=== PATIENT | male | born 1930 | race Caucasian/White ===

== ENCOUNTER 2018-08-17 11:21 | Inpatient (IN) | payer OTHER, BC ==
[~2018-08-17] VITALS: Ht 170.2 cm; Wt 68.1 kg
[2018-08-17 11:35] VITALS: Ht 170.2 cm; Wt 68.1 kg
--- NOTE | 2018-08-17 11:50 | NUR ---
PT PRESENTS TO ED WITH C/O MEMORY LOSS SINCE LAST WEEK. PER NEPHEW, PATIENT IS NORMALLY ACTIVE AND STILL GAINFULLY EMPLOYED. PT'S NORMAL ROUTINE INCLUDES GETTING ON THE COMPUTER AND RESEARCHING INVESTMENTS. PER NEPHEW, OF LAST WEEK, PATIENT HAS NOT BEEN ABLE TO USE THE COMPUTER, STS THAT PATIENT'S MIND HAS BEEN "WANDERING". WHEN ASKED QUESTIONS, PATIENT HAS BEEN ABLE TO FULLY ANSWER ALL QUESTIONS WITH NO HESITATION, GCS 15 AAOX4, PERRLA, AND PATIENT ACTING APPROPRIATELY. BREATHING IS E/U BILATERAL CHEST RISE. AWAITING MSE
--- NOTE | 2018-08-17 11:57 | NUR ---
PT RESTING AT BEDSIDE IN NAD. DR. ODEN AT BEDSIDE PERFORMING MSE
--- NOTE | 2018-08-17 12:50 | NUR ---
PT RESTING AT BEDSIDE IN NAD. BREATHING E/U BILATERAL CHEST RISE. BED AT LOWEST POSITION. CALL LIGHT IN REACH. NEPHEW AT BEDSIDE
[2018-08-17 13:02] LABS: UA SPECIFIC GRAVITY 1.015 (1.005-1.035); microscopic required? YES; urine erythrocyte NEGATIVE (NEGATIVE)
[2018-08-17 13:04] LABS: PLATELET COUNT 431 x10^3mcL (130-400); RED CELL DISTRIBUTION WIDTH 17.4 % (11.5-14.5)
[2018-08-17 13:20] LABS: BAND NEUTROPHIL 1 % (0-10); BASOPHIL 0 % (0-2); MONOCYTE 8 % (0-7); SEGMENTED NEUTROPHILS 68 % (37-75)
[2018-08-17 13:21] LABS: PLATELET MORPHOLOGY PLATELETS INCREASED; rbc morphology (normal/abnorm) ABNORMAL (NORMAL)
[2018-08-17 13:31] LABS: AMPHETAMINE QUAL UR NONE DETECTED (See below)
[2018-08-17 13:49] LABS: CALCIUM 8.8 mg/dL (8.5-10.1); CARBON DIOXIDE 30.3 mmol/L (21-32); CHLORIDE SERUM 103 mmol/L (98-107); CREATININE SERUM 0.6 mg/dL (0.7-1.3); GLUCOSE SERUM 108 mg/dL (74-106); POTASSIUM SERUM 3.7 mmol/L (3.5-5.1); SODIUM SERUM 144 mmol/L (136-145)
[2018-08-17 14:00] LABS: ALBUMIN 3.6 g/dL (3.4-5.0); ALKALINE PHOSPHATASE 122 U/L (46-116); ALT/SGPT 15 U/L (16-63); AST/SGOT 13 U/L (15-37); BILIRUBIN TOTAL 1.37 mg/dL (0.20-1.00); CHOLESTEROL 147 mg/dL (<200); LIPASE 95 IU/L (73-393); MAGNESIUM 2.1 mg/dL (1.8-2.4); T4(THYROXINE) 9.4 ug/dL (4.7-13.3); TOTAL PROTEIN, SERUM 7.7 g/dL (6.4-8.2)
[2018-08-17 14:01] LABS: HDL CHOLESTEROL 80 mg/dL (40-60)
[2018-08-17] MEDS ORDERED: ADV100/50 (14:15)
[2018-08-17 15:49] VITALS: BP 136/59
--- NOTE | 2018-08-17 15:56 | NUR ---
RECEIVED PT FROM ED VIA DEMETRIUS. ORIENTED PT TO ROOM AND SURROUNDINGS. IV NOTED TO RAC PATENT AND INTACT. TELE 9 PLACED ON PT READING NSR. INSTRUCTED PT ON THE USE OF CALL LIGHT FOR ASSISTANCE. ENDORSED PT TO PRIMARY NURSE KELLY
[2018-08-17] MEDS ORDERED: METFORMIN HYDR500 M1 PO (16:11)
[2018-08-17] MEDS ORDERED: NOR10 PO (16:11)
--- NOTE | 2018-08-17 16:12 | NUR ---
SPOKE WITH PATIENTS RANI METZ. DUSTIN GAVE AN UPDATED LIST OF PT HOME MEDICATIONS. UPDATED ON EMAR.
--- NOTE | 2018-08-17 17:01 | NUR ---
PT IN BED RESTING. NO ACUTE RESP DISTRESS NOTED ON RA. PT DENIES ANY PAIN AT THIS TIME. IV PATENT AND INFUSING TO RFA. NO REDNESS OR SWELLING NOTED. BLOOD SUGAR CHECKED WAS 109. NO COVERAGE NEEDED. WILL CONTINUE TO MONITOR. CALL LIGHT IN REACH. BED IN LOWEST POSITION.
--- NOTE | 2018-08-17 18:31 | NUR ---
PT SITTING UP IN BED RESTING. RESPIRATIONS EQUAL AND UNLABORED ON RA. PT DENIES SOB. TELE#9. PT DENIES ANY PAIN AT THIS TIME. IV PATENT AND INFUSING TO RAC. NO REDNESS OR SWELLING NOTED. PT EATING DINNER AND TOLERATING WELL. WILL ENDORSE TO LAYOUT MAN RN. CALL LIGHT IN REACH. BED IN LOWEST POSITION.
--- NOTE | 2018-08-17 19:20 | NUR ---
RECEIVED PT IN BED RESTING.NO DISTRESS NOTED, DENIES ANY PAIN AT THIS TIME. IV SITE PATENT AND INTACT.BED IN LOWEST POSITION,CALL LIGHT WITHIN REACH. WILL CONTINUE TO MONITOR.
[2018-08-17 20:23] VITALS: BP 159/52
[2018-08-18] VITALS (7 sets, daily range): BP systolic 124–187; BP diastolic 60–71
--- NOTE | 2018-08-18 00:43 | NUR ---
PT C/ INSOMIA. MEDICATED AMBIEN 5MG PO ORDERED. WILL CONTINUE TO MONITOR.
--- NOTE | 2018-08-18 05:23 | NUR ---
PT REMAINED ASLEEP. NO DISTRESS NOTED. NO C/O PAIN. BED IN LOWEST POSITION,SIDERAILS UP. CALL LIGHT WITHIN REACH. WILL CONTINUE TO MONITOR.
[2018-08-18 06:38] LABS: CALCIUM 8.9 mg/dL (8.5-10.1); CARBON DIOXIDE 32.5 mmol/L (21-32); CHLORIDE SERUM 102 mmol/L (98-107); CREATININE SERUM 0.7 mg/dL (0.7-1.3); GLUCOSE SERUM 117 mg/dL (74-106); IRON 41 ug/dL (65-170); PHOSPHOROUS 3.4 mg/dL (2.5-4.9); POTASSIUM SERUM 3.6 mmol/L (3.5-5.1); SODIUM SERUM 140 mmol/L (136-145); TOTAL IRON BINDING CAPACITY 365 ug/dL (250-450)
--- NOTE | 2018-08-18 07:10 | NUR ---
RECEIVED PT FROM VIBRATION ENGINEER RN. Sunny/GISSEL4. PT HAD SOME CONFUSION THIS AM. PT IS FORGETFUL AT TIMES. RESPIRATIONS EQUAL AND UNLABORED ON RA. DENIES SOB. PT DENIES ANY PAIN AT THIS TIME. IV TO LFA PATENT AND INFUSING. NO REDNESS OR SWELLING NOTED. WILL CONTINUE TO MONITOR. CALL LIGHT IN REACH. BED IN LOWEST POSITION.
--- NOTE | 2018-08-18 07:26 | NUR ---
CARE ENDORSED TO DAY NURSE KELLY.
[2018-08-18 08:11] LABS: BASOPHIL % 0.6 % (0-2); PLATELET COUNT 373 x10^3mcL (130-400)
[2018-08-18 08:13] LABS: RED CELL DISTRIBUTION WIDTH 17.5 % (11.5-14.5)
--- NOTE | 2018-08-18 08:21 | NUR ---
PT SITTING UP AT BEDSIDE. PHYSICAL THERAPIST AT BEDSIDE. PER PT HE FEELS MORE COMFORTABLE USING WALKER. PHYSICAL THERAPIST RECOMMENDS PT CONTINUE PHYSICAL THERAPY. PT EATING DINNER. NO ACUTE RESP DISTRESS NOTED ON RA. PT BP WAS 187/64. GIVEN PO MEDS. TOLERATED WELL. WILL CONTINUE TO MONITOR. CALL LIGHT IN REACH. BED IN LOWEST POSITION.
--- NOTE | 2018-08-18 09:45 | NUR ---
DR. BROOKE AND DR. STEWART AT BEDSIDE. INFORMED OF PT BLOOD PRESSURE. PER DR. BROOKE DISCONTINUE IV FLUIDS. IV TO LFA SALINE LOCKED. NO REDNESS OR SWELLING NOTED.
--- NOTE | 2018-08-18 11:42 | NUR ---
SPOKE WITH US BASIN FINISH OPERATOR TIG WELDER, KEEP PT NPO, US OF ABDOMEN WILL BE DONE AROUND 1500.
--- NOTE | 2018-08-18 12:02 | NUR ---
PT SITTING UP IN BED. NEPHEW DUSTIN METZ AT BEDSIDE WITH PT. PER DR. BROOKE FAMILY STATES PT IS STILL NOT AT HIS BASELINE. PT MADE AWARE TO REMAIN NPO UNTIL US OF ABDOMEN IS COMPLETE. PT AND NEPHEW VERBALIZED UNDERSTANDING. BLOOD SUGAR CHECKED WAS 117. NO COVERAGE NEEDED. WILL CONTINUE TO MONITOR. CALL LIGHT IN REACH. BED IN LOWEST POSITION.
--- NOTE | 2018-08-18 13:50 | NUR ---
PT ATE LUNCH. PT FORGOT HE WAS SUPPOSED TO REMAIN NPO FOR US ABDOMEN. NPO SIGN WAS UP. SPOKE WITH DR. BROOKE PER DR. MENDY TREVINOAY WITH PUTTING IN ORDER FOR NPO AND [facility] US ABDOMEN [facility] COMPLETE. SPOKE WITH GREGORY IN RADIOLOGY INFORMED HER PT ATE LUNCH AROUND 1330, PER GREGORY SHE WILL LET HER US TECH KNOW.
--- NOTE | 2018-08-18 14:00 | NUR ---
RECEIVED RESULTS FOR ABD PLACE PT ON 2L NC.
--- NOTE | 2018-08-18 14:44 | NUR ---
SPOKE WITH US NIGHT WAREHOUSE SELECTOR SHE WILL DO US ABDOMEN AROUND 1999.
--- NOTE | 2018-08-18 18:27 | NUR ---
PT IN BED SLEEPING COMFORTABLY. DROWSY BUT AROUSABLE TO TOUCH. RESPIRATIONS EQUAL AND UNLABORED ON 2L NC. NO ACUTE RESP DISTRESS NOTED. TELE#9. PT DENIES ANY PAIN AT THIS TIME. PT REMINDED US ABDOMEN WILL BE DONE AROUND 1999. PT VERBALIZED UNDERSTANDING. IV SALINE LOCKED TO LFA. NO REDNESS OR SWELLING NOTED. WILL CONTINUE TO MONITOR. CALL LIGHT IN REACH. BED IN LOWEST POSITION.
--- NOTE | 2018-08-18 19:50 | NUR ---
PATIENT RECEIVED IN BED AWAKE,ALERT AND ORIENTED X3, FORGETFUL AT TIMES, AND CONFUSED AT TIMES, SPEECH CLEAR, PATIENT HOB ON BOTH EARS. NO RESP. DISTRESS, BREATHING EVEN AND UNLABORED BS CLEAR, FOUND ON 2LNC SAT 95%. DENIED CHEST PAIN HR=84BPM,RHYTHM REGULAR. HEPLOCK TO LFA PATENT AND INTACT SITE CLEAR NO REDNESS, FLUSHED WELL NO RESISTANCE ENCOUNTERED, CAP LOCK APPLIED. PATIENT INFORMED ABOUT POC THIS SHIFT.DENIED ANY PAIN. SAFETY/FALL PRECAUTIONS MAINTAINED. NEEDS ANTICIPATED. EDUCATED AND INSTRUCTED HOW TO USE CALL LIGHT. WILL CONTINUE TO MONITOR.
--- NOTE | 2018-08-18 23:23 | NUR ---
US TECH CALLED AND STATED US ABDOMEN WILL BE DONE IN AM, PATIENT GIVEN SANDWICH AND JUICE HE HAD REQUESTED. NO DIFF SWALLOWING. PATIENT INFORMED AND INSTRUCTED THAT HE'LL BE NPO AFTER MIDNOC FOR US ABD IN AM. OFFERED NO COMPLAINTS THIS TIME. VERBALIZED UNDERSTANDING. REMAINED ORIENTED X3 WITH PERIODS OF FORGETFULNESS AND ON AND OFF CONFUSION. SAFETY PRECAUTIONS MAINTAINED. WILL CONTINUE TO MONITOR.
[2018-08-19 05:33] VITALS: BP 165/67
[2018-08-19 05:42] VITALS: BP 155/57
--- NOTE | 2018-08-19 06:22 | NUR ---
PATIENT SLEPT OFF AND ON DURING SHIFT, WAS ASSIST TO THE BATHROOM WITH STEADY SLOW GAIT, VOIDED WITHOUT DIFF. PATIENT WITH CONFUSION/FORGETFULNESS OFF AND ON. SR ON THE MONITOR. HEPLOCK TO LFA FLUSHED WELL ,CAPPED. SAFETY/FALL PRECAUTIONS OBSERVED AND MAINTAINED. WILL ENDORSE CONTINUITY OF CARE TO INCOMING NURSE.
[2018-08-19 06:50] LABS: CALCIUM 8.5 mg/dL (8.5-10.1); CARBON DIOXIDE 33.4 mmol/L (21-32); CHLORIDE SERUM 102 mmol/L (98-107); CREATININE SERUM 0.7 mg/dL (0.7-1.3); GLUCOSE SERUM 111 mg/dL (74-106); PHOSPHOROUS 2.5 mg/dL (2.5-4.9); POTASSIUM SERUM 4.2 mmol/L (3.5-5.1); SODIUM SERUM 138 mmol/L (136-145)
--- NOTE | 2018-08-19 07:10 | NUR ---
RECEIVED PT FROM MOWER OPERATOR RN. Sunny/YOSI. TELE#9. RESPIRATIONS EQUAL AND UNLABORED ON 2L NC. NO ACUTE RESP DISTRESS NOTED. US TACTICAL/MOBILE WATCH OFFICER AT BEDSIDE FOR US OF ABDOMEN. IV SALINE LOCKED TO LFA. NO REDNESS OR SWELLING NOTED. WILL CONTINUE TO MONITOR. CALL LIGHT IN REACH.
[2018-08-19 08:31] LABS: BASOPHIL % 0.3 % (0-2); PLATELET COUNT 332 x10^3mcL (130-400)
[2018-08-19 08:39] LABS: RED CELL DISTRIBUTION WIDTH 17.1 % (11.5-14.5)
--- NOTE | 2018-08-19 08:55 | NUR ---
PT SITTING UP IN BED. O2 SAT CHECKED WAS 92% ON RA. PT PLACED BACK ON NC 2L. NO ACUTE RESP DISTRESS NOTED. GIVEN PO MEDS. TOLERATED WELL. PT DENIES ANY PAIN AT THIS TIME. PT ASKING TO HAVE NEPHEW NOTIFIED IF HE IS DISCHARGED TODAY. PT ASSURED HIS NEPHEW WILL BE CONTACTED. PT ENCOURAGED TO USE CALL LIGHT WHEN IN NEED OF ASSISTANCE TO BATHROOM. WILL CONTINUE TO MONITOR. CALL LIGHT IN REACH. BED IN LOWEST POSITION.
[2018-08-19 09:21] VITALS: BP 131/55
--- NOTE | 2018-08-19 10:15 | NUR ---
DR. BROOKE AND DR. STEWART AT BEDSIDE, CHARGE NURSE SAVANAH UPDATED DR. STEWART ON NEPHEW CONCERN OF PT HAVING SOB WHEN WALKING, INFORMED DR. STEWART PT ABG PO2 WAS 61.6. PER DR. BROOKE AND DR. STEWART AMBULATE PT IN HALLWAY AND CHECK O2 SAT. WILL NOTIFIY DR. BROOKE AFTER.
--- NOTE | 2018-08-19 10:39 | NUR ---
ASSISTED PT TO AMBULATE IN HALLWAY. O2 SAT WAS CHECKED PT WAS AMBULATING PT MAINTAINED 93% ON RA. PT WAS A SLIGHTLY UNSTEADY. PT STATES HE USES A CANE AT HOME AND WILL CONTINUE TO UTILIZE USING A CANE. CALLED DR. BROOKE AND NOTIFIED HER OF PT STATUS. PER DR. BROOKE PT IS OKAY TO GO HOME TODAY.
--- NOTE | 2018-08-19 10:45 | NUR ---
SPOKE WITH NEPHWILFREDO METZ AND UPDATED HIM ON HOW PT TOLERATED AMBULATING IN HALLWAY. PER DUSTIN HE WILL COME AFTER 12 TO TAKE PT HOME AND WILL BRING HIM CLOTHES.
--- NOTE | 2018-08-19 11:30 | NUR ---
PT SITTING UP IN BED. NO ACUTE RESP DISTRESS NOTED ON RA. PT DENIES ANY PAIN AT THIS TIME. BLOOD SUGAR CHECKED WAS 111. NO COVERAGE NEEDED. PT ASKING WHEN HE CAN GO HOME. INFORMED PT HIS NEPHEW WILL PICK HIM UP AFTER NOON AND WILL BE BRING HIM SOME CLOTHING. WILL CONTINUE TO MONITOR. CALL LIGHT IN REACH. BED IN LOWEST POSITION.
[2018-08-19 12:04] VITALS: BP 131/55
--- NOTE | 2018-08-19 12:55 | NUR ---
PT SITTING UP AT BEDSIDE. NEPHEW AT BEDSIDE. PT NEPHEW ASKING TO SPEAK WITH DR. BROOKE. DR. BROOKE SPOKE WITH FAMILY INFORMED THEM THAT ALL DIAGNOSTIC TEST AND BLOOD WORK HAS COME BACK NEGATIVE. DR. BROOKE ENCOURAGED PT AND FAMILY TO CONTINUE TO TAKE BLOOD PRESSURE MEDICATION PRESCRIBED. PT AND NEPHEW VERBALIZED UNDERSTANDING. PT ENCOURAGED TO CONTINUE HOME MEDICATIONS. PT ENCOURAGED TO CONTINUE ACTIVITY TOLERATED. PT RECOMMENED TO DECREASE SODIUM INTAKE AND TO USE HIS CANE WHILE AT HOME. PT VERBALIZED UNDERSTANDING. PT ENCOURAGED TO FOLLOW UP TO PCP WITHIN 1 WEEK OR SOON. NEPHEW VERBALIZED UNDERSTANDIING. FAMILY AND PT EDUCATED TO RETURN TO ER IF ANY WORSENING SYMPTOMS OF SOB, FEVER, CONFUSION. IV TO LFA REMOVED CATHETER INTACT. NO REDNESS OR SWELLING NOTED. ALL QUESTIONS AND CONCERNS ADDRESSED. TELE#9 RETURNED TO STRUCTURAL STEEL ENGINEER ZAMZAM. PT TAKEN OFF FLOOR VIA WHEELCHAIR BY FORTINO. NO PROBLEMS ENCOUNTERED.
== END 2018-08-19 13:00 | disposition home or self-care (01) | DRG 304 ==
LOC: ED 11:21 → DU 14:57
PROVIDERS: Emergency Medicine; ADMIT Internal Medicine
DX: I10 Essential (primary) hypertension (principal); G93.41 Metabolic encephalopathy; N17.0 Acute kidney failure with tubular necrosis; D50.9 Iron deficiency anemia, unspecified; E11.9 Type 2 diabetes mellitus without complications; J44.9 Chronic obstructive pulmonary disease, unspecified; Z68.22 Body mass index [BMI] 22.0-22.9, adult; Z79.84 Long term (current) use of oral hypoglycemic drugs; Z87.891 Personal history of nicotine dependence; Z66 Do not resuscitate
CPT/HCPCS: 36600; 82962; 97116-GP; G0378; G0480; J1956; J7030; Q0092

== ENCOUNTER 2018-12-08 12:01 | Emergency (ER) | payer OTHER, BC ==
[~2018-12-08] VITALS: Ht 170.2 cm; Wt 68.9 kg
[~2018-12-08 12:01] MED LIST: ADV100/50; METFORMIN HYDR500 M1 PO; NOR10 PO
[2018-12-08 12:10] VITALS: BP 122/46; Ht 170.2 cm; Wt 68.9 kg
== END 2018-12-08 13:00 | disposition home or self-care (01) ==
LOC: ED 12:01
DX: R22.43 Localized swelling, mass and lump, lower limb, bilateral (principal); I10 Essential (primary) hypertension; E11.9 Type 2 diabetes mellitus without complications; Z90.6 Acquired absence of other parts of urinary tract

== ENCOUNTER 2019-07-27 18:53 | Emergency (ER) | payer OTHER, BC, SELFPAY ==
[~2019-07-27] VITALS: Ht 170.2 cm; Wt 67.6 kg
[2019-07-27 19:03] VITALS: Ht 170.2 cm; Wt 67.6 kg
[2019-07-27 20:17] VITALS: BP 129/48
== END 2019-07-27 20:17 | disposition home or self-care (01) ==
LOC: ED 18:53
DX: Z20.828 Contact with and (suspected) exposure to other viral communicable diseases (principal); I10 Essential (primary) hypertension; E11.9 Type 2 diabetes mellitus without complications; J45.909 Unspecified asthma, uncomplicated; Z98.890 Other specified postprocedural states
CPT/HCPCS: Q0092; U0003-CS